=== PATIENT | female | born 1930 | race Caucasian/White ===

== ENCOUNTER → 2016-06-13 | Day surgery (SDC) | payer MEDICARE, OTHER ==
[2016-05-22 10:14] VITALS: BMI 34.0
--- NOTE | 2016-06-12 11:06 | SC.ANESEVA ---
Anesthesia Eval & Plan ([facility]) - Providers Stated Procedure: Left Eye Surgeon:: Yamilex Flores - Medications/Allergies Allergies: Allergies niacin [From Niaspan Extended-Release] Allergy (Intermediate, Verified 11/28/15 09:56) Difficulty Breathing Home Medications: Home Medication List Cetirizine HCl [Zyrtec] 10 mg PO DAILY 05/22/16 [History] Naproxen Sodium [Aleve] 220 mg PO BID 05/22/16 [History] Current Medication List: Reviewed - Focused Physical Exam NPO since: Since after Midnight Mallampati: Class II Thyromental Distance: Greater than 3 Neck: Full Range of Motion Dental: Normal - no significant findings Cardiovascular/Chest: Normal (RRR no mumurs or rubs.) Respiratory: Lungs clear. negative: Wheezing Any problems with anesthesia, including nausea and vomiting?: Yes (slow to arouse) Any relatives with a history of Malignant Hyperthermia?: No Prone to Motion Sickness: No Other: Diagnoses COMBINED FORMS OF AGE-RELATED CATARACT, LEFT EYE (06/13/16) Problem List Problem Status Onset Anemia Acute Humerus fracture Acute Osteoarthritis of multiple joints Acute Pyuria Acute Right shoulder pain Acute Shortness of breath Acute HTN (hypertension) Chronic Allergies Allergy/AdvReac Type Severity Reaction Status Date / Time niacin Allergy Intermediate Difficulty Verified 11/28/15 09:56 [From Niaspan Breathing Extended-Release] Home Medications Medication Instructions Recorded Last Taken Type Ezetimibe [Zetia] 10 mg PO DAILY 07/28/14 02/02/16 History Allopurinol [Zyloprim] 100 mg PO DAILY 08/09/14 02/01/16 History Furosemide [Lasix] 20 mg PO DAILY 08/09/14 02/02/16 History Ferrous Sulfate [Feosol] 325 mg PO DAILY 11/28/15 02/01/16 History Olmesartan Medoxomil [Benicar] 40 mg PO DAILY 11/28/15 02/02/16 History Cetirizine HCl [Zyrtec] 10 mg PO DAILY 05/22/16 Unknown History Naproxen Sodium [Aleve] 220 mg PO BID 05/22/16 Unknown History Height and Weight Patient's height 5 ft 5 in Patient's weight 92.73 kg Weight (Calculated Kilograms) 92.730 BMI 34.0 - Anesthetic Plan Anesthesia Type: MAC ASA Class: 3 - Focused Review of Systems Cardiac History: Yes: Hx Hypertension, Hx Cardiac Disorders, Hx Abnormal Cholesterol/Hyperlipidemia HEENT: Yes: Other HEENT Problems Respiratory: Yes: Hx Chronic Obstructive Pulmonary Disease (COPD), Hx Snoring Gastrointestinal: Yes: Hx Gastroesophageal Reflux Disease, Hx Gastrointestinal Disorders, Hx Colonoscopy Neurological/Musculoskeletal: No: Hx Neurological Disorders Blood/Autoimmune: Yes: Hx Blood Transfusions (with surgery), Hx Anemia No: Hx AIDS, Hx Hepatitis (type) Smoking Status: Never smoker Surgical History: Yes: T&A, Appendectomy, Cholecystectomy, Hip (right replcaement), Knee (taylor. replacements), Other (Right knee and left hip surgery)
[~2016-06-13] MED LIST: BSS 500 ml-Vancomycin 10 mg-Phenylephrine 1 mg Irrigation IR ONE; CHONDROITIN SULFATE 0.5 ML/PFS INTRAOC ONE; DEXAMETHASONE 4 MG/ML VIAL IV PRN; DIAZEPAM 5 MG TAB PO PRN; FENTANYL 100 MCG/2 ML VIAL ONE; Hyaluronate Sodium (Provisc) 5.5 mg/0.55 ml syringe INTRAOC ONE; LABETALOL 20 MG/4 ML SYRINGE IV PRN; MIDAZOLAM 2 MG/2 ML VIAL ONE; ONDANSETRON HCL 4 MG/2 ML VIAL IV PRN; PHENYLEPHRINE 2.5% OPHTH SOLN 2 ML BOT OP EYE ONE; SCOPOLAMINE TRANSDERMAL PATCH TOP ONE; TETRACAINE 0.5% 2 ML OPHTH SOLN OP EYE ONE; TETRACAINE 0.5% 2 ML OPHTH SOLN OP EYE PRN; TETRACAINE 0.5% 4 ML OPHTH SOLN OP EYE ONE; TETRACAINE 0.5% 4 ML OPHTH SOLN OP EYE PRN; TROPICAMIDE 1% OPHTH SOLN 2 ML BOTTLE OP EYE ONE; Vancomycin 10 MG, Phenylephrine 1,000 MCG in Balanced Salt Solution 500 ML IO ONE; hydrALAZINE 20 MG/ML VIAL IV PRN
[2016-06-13 08:43] VITALS: TEMP 97.2
--- NOTE | 2016-06-13 09:25 | HIMOPRPT ---
DATE OF PROCEDURE: 06/13/16 PREOPERATIVE DIAGNOSIS: Cataract left eye. POSTOPERATIVE DIAGNOSIS: Cataract left eye. PROCEDURE: Cataract extraction by phacoemulsification of the left eye SURGEON: Yamilex Flores MD. ANESTHESIA: IV Sedation/Topical. COMPLICATIONS: None. PRE-OPERATIVE EVALUATION: The patient has been examined and deemed medically stable for cataract extraction with no apparent need for inpatient observation; outpatient setting is appropriate. Patient appears to be oriented to time, place and person. PROCEDURE IN DETAIL: The correct eye confirmed by patient, doctor, staff and paperwork. The operative eye was then marked by the doctor in the preoperative area. Eye drops were instilled into the operative eye to dilate the pupil. The patient was transported to the operating room and was placed in the supine position. A time out was performed before the beginning of the procedure. The operative eye was prepped and draped in the usual sterile fashion for ophthalmic surgery, taking care to isolate the lashes from the surgical field. Topical anesthetic drops were instilled into the operative eye. A lid speculum was placed. Betadine 5% was instilled in the operative eye for antiseptic. Microscope was brought into place for use throughout the case. The eye was inspected. A paracentesis incision was created with a side port knife. The temporal limbal corneal incision was performed with a jorge blade. Viscoelastic was injected into the anterior chamber. Capsule forceps were used to create a capsulorhexis. Hydrodissection was performed with BSS. The nucleus was removed by phacoemulsification. Phaco time is noted below. The remaining cortical material was removed by I&A. The capsular bag was noted to be intact and distended with viscoelastic. The Intraocular lens was placed into the intact bag and centered without difficulty. The remaining viscoelastic was removed by I&A. Betadine 5% drops were placed to inspect wound and for antisepsis. Inspection revealed watertight wounds. The lid speculum was removed. Postoperative medications were instilled into the eye and a shield secured over the operative eye. IOL Type [id number] IOL Power 22.0 CDE 8.56 Discharge Summary: There were no complications and the patient was taken to the postoperative area in good condition. Postoperative instructions and outpatient follow up time were given.
[2016-06-13 09:29] VITALS: BP 171/72; PULSE 69
--- NOTE | 2016-06-13 09:31 | SC.ANESPOS ---
Post-Anesthesia Note LOC: Fully Awake Post-Anesthesia Assessment: Awake, Returned to Baseline, Hemodynamically Stable , Pain Control Adequate Phase I & II Recovery Complete: Yes Apparent Anesthesia Complication: No : N - Vital Signs Blood Pressure: 171/72 Pulse: 69 Resp Rate: 17 O2 Sat: 95 Temp: 97.2 F
== END ==
LOC: CPSC 07:49
PROVIDERS: ATTEND Ophthalmology
PROC: 08RK3JZ Replacement of Left Lens with Synthetic Substitute, Percutaneous Approach (ICD-10-PCS; principal; 2016-06-13 09:30)
DX: H25.812 Combined forms of age-related cataract, left eye (principal); I10 Essential (primary) hypertension; E78.5 Hyperlipidemia, unspecified; J44.9 Chronic obstructive pulmonary disease, unspecified; K21.9 Gastro-esophageal reflux disease without esophagitis; F41.9 Anxiety disorder, unspecified; M10.9 Gout, unspecified; M19.90 Unspecified osteoarthritis, unspecified site; Z79.899 Other long term (current) drug therapy
CPT/HCPCS: 66984; A9270; J2250; J3010; V2632; J3490